=== PATIENT | male | born 1990 | race Caucasian/White ===

== ENCOUNTER 2021-08-16 13:23 | Emergency (ER) | payer OTHER ==
[~2021-08-16] VITALS: Ht 180.3 cm; Wt 102.1 kg
[~2021-08-16 13:23] MED LIST: ADVIL200 M1 PO; ASPIR 8181 MG PO; PERCOCET 5-3251 EACH PO
[2021-08-16] MEDS ORDERED: KEFLEX250 MG PO (18:10)
== END 2021-08-16 18:40 | disposition home or self-care (01) ==
LOC: FER 13:23
DX: S62.634B Displaced fracture of distal phalanx of right ring finger, initial encounter for open fracture (principal); I10 Essential (primary) hypertension; Z79.899 Other long term (current) drug therapy; Z28.310 Unvaccinated for COVID-19; X58.XXXA Exposure to other specified factors, initial encounter; Y92.89 Other specified places as the place of occurrence of the external cause; Y99.0 Civilian activity done for income or pay
CPT/HCPCS: 73140